=== PATIENT | female | born 1960 | race Caucasian/White ===

== ENCOUNTER 2020-01-11 09:00 | Day surgery (SDC) | payer BC, OTHER ==
[~2020-01-11] VITALS: Ht 162.6 cm; Wt 74.2 kg
[~2020-01-11 09:00] MED LIST: FLUO20 PO; LEVSOD100 PO; ONDA4 PO; OXYACE5T PO; PHENTERMINE PO; RXONDA4ODT MM
== END 2020-01-11 11:16 | disposition home or self-care (01) ==
LOC: ORSCSDS 09:00
PROVIDERS: Surgery
PROC: 0DJD8ZZ Inspection of Lower Intestinal Tract, Via Natural or Artificial Opening Endoscopic (ICD-10-PCS; principal; 2020-01-11 10:15)
DX: Z12.11 Encounter for screening for malignant neoplasm of colon (principal); Z86.010 Personal history of colon polyps; K57.30 Diverticulosis of large intestine without perforation or abscess without bleeding; E03.9 Hypothyroidism, unspecified; E78.5 Hyperlipidemia, unspecified; Z79.899 Other long term (current) drug therapy
CPT/HCPCS: J2704; J7120

== ENCOUNTER → 2022-02-05 | Outpatient (CLI) | payer OTHER | END | disposition home or self-care (01) | LOC: PLD 07:48 → LAB 07:48 → LAB SHORT 07:48 | DX: B35.1 Tinea unguium (principal); L60.2 Onychogryphosis | CPT/HCPCS: 88305; 88312 ==

== ENCOUNTER 2024-12-29 06:14 | Day surgery (SDC) | payer OTHER ==
[~2024-12-29] VITALS: Ht 160 cm; Wt 68.6 kg
[~2024-12-29 06:14] MED LIST changes: +Lactated Ringer's 1,000 ML IV ONE
[2024-12-29] MEDS ORDERED: CeFAZolin Sodium 2,000 MG VIAL ONE (06:35)
[2024-12-29] MEDS ORDERED: propofoL 20 ML IV ONE (06:43)
[2024-12-29] MEDS ORDERED: FentaNYL Citrate 50 MCG/ML 2 ML Injection ONE (06:43)
[2024-12-29] MEDS ORDERED: Midazolam HCl 1MG / ML 2ML Vial ONE (06:43)
[2024-12-29] MEDS ORDERED: Ondansetron HCl 2 MG / ML 2ML Vial ONE (06:44)
[2024-12-29] MEDS ORDERED: Dexamethasone Sod Phos 10 MG/ML 1ML VIAL ONE (06:44)
[2024-12-29] MEDS ORDERED: Dexmedetomidine HCL 200 MCG / 2 ML ONE (06:47)
[2024-12-29] MEDS ORDERED: Lidocaine 2%-Epineph 1:200000 20 ML SDV ONE (06:48)
[2024-12-29] MEDS ORDERED: PROG100 PO (06:54)
[2024-12-29] MEDS ORDERED: LIOT5 PO (06:54)
[2024-12-29] MEDS ORDERED: Lactated Ringer's 1,000 ML IV ONE ×2 (06:58→07:45)
[2024-12-29] MEDS ORDERED: Bupivacaine 0.5% W/EPI 1:200000 SDV 30 ML Vial ONE (06:58)
--- NOTE | 2024-12-29 07:18 | NUR ---
12/29/24 0718 Karla Lainez TIME OUT PERFORMED AT BEDSIDE WITH DR CASTANO AT 0706 PRIOR TO START OF PREOP NERVE BLOCK. POPLITEAL NERVE BLOCK STARTED AT 0708 AND ENDED AT 0709. PT PLACED ON 3L O2 VIA N/C FOR PROCEDURE AND HR AND SPO2 MONITORED THROUGHOUT. PT TOLERATED PROCEDURE WELL WITHOUT ANY DIFFICULTIES.
[2024-12-29 09:01] VITALS: BP 106/65
[2024-12-29] MEDS ORDERED: HYDROcodone 5-APAP 325 TAB ONE (09:13)
== END 2024-12-29 09:38 | disposition home or self-care (01) ==
LOC: ORSCSDS 06:14
PROVIDERS: Podiatrist Foot & Ankle Surgery
PROC: 0SGL04Z Fusion of Left Tarsometatarsal Joint with Internal Fixation Device, Open Approach (ICD-10-PCS; principal; 2024-12-29 07:30)
PROC: 0QBR0ZZ Excision of Left Toe Phalanx, Open Approach (ICD-10-PCS; principal; 2024-12-29 07:30)
DX: M21.612 Bunion of left foot (principal); E03.9 Hypothyroidism, unspecified; Z79.899 Other long term (current) drug therapy; Z85.828 Personal history of other malignant neoplasm of skin
CPT/HCPCS: A9270; C1713; J0690; J1100; J2250; J2405; J2704; J3010; J7120